=== PATIENT | male | born 1940 | race Caucasian/White ===

== ENCOUNTER 2020-04-23 11:14 | Inpatient (IN) | payer MEDICARE, OTHER ==
[~2020-04-23] VITALS: Ht 177.8 cm; Wt 71.5 kg
[2020-04-23 13:07] LABS: BASOPHILS % (AUTO) 0.1 % (0.0-2.0); EOSINOPHILS % (AUTO) 0.7 % (1.0-6.0); HEMATOCRIT 27.1 % (41-53); HEMOGLOBIN 8.8 g/dL (13.5-17.5); LYMPHOCYTES # (AUTO) 0.5 K/uL (1.0-4.8); LYMPHOCYTES % (AUTO) 8.7 % (22.0-44.0); MEAN CORPUSCULAR HEMOGLOBIN 28.8 pg (26.0-34.0); MEAN CORPUSCULAR HGB CONC 32.3 G/dL (31.0-37.0); MEAN CORPUSCULAR VOLUME 89 fL (80-100); MONOCYTES # (AUTO) 0.3 K/uL (0.1-1.0); MONOCYTES % (AUTO) 5.4 % (2.0-9.0); NEUTROPHILS # (AUTO) 5.1 K/uL (1.8-7.7); NEUTROPHILS % (AUTO) 85.1 % (40.0-70.0); PLATELET COUNT (AUTO) 274 K/uL (150-450); RED BLOOD CELL COUNT(AUTO) 3.05 MIL/uL (4.50-5.90)
[2020-04-23 13:17] LABS: CREATININE 1.82 mg/dL (0.60-1.30); POTASSIUM 3.8 mmol/L (3.5-5.1)
[2020-04-23 13:23] LABS: BILIRUBIN,TOTAL 1.1 mg/dL (0.1-1.0); TOTAL PROTEIN, SERUM 6.7 g/dL (6.4-8.2)
[2020-04-23] MEDS ORDERED: CefTRIAXone 1 GM/DEXTROSE 50 ML IV ONE (14:15)
[2020-04-23] MEDS ORDERED: AZITHROMYCIN 500 MG/NS 250 ML IV ONE (14:15)
[2020-04-23] MEDS ORDERED: NITROGLYCERIN 2% (1 GM=INCH) PACKET TP ONE (14:15)
[2020-04-23] MEDS ORDERED: FUROSEMIDE 40 MG/4 ML VIAL IVP ONE (14:15)
[2020-04-23] MEDS ORDERED: ASPIRIN 81 MG CHEWABLE TABLET PO ONE (14:15)
[2020-04-23 15:52] LABS: COVID AG,FIA SOURCE NASOPHARYNGEAL
[2020-04-23] MEDS ORDERED: DIGO125T84 PO (16:52)
[2020-04-23] MEDS ORDERED: PROZ10 PO (16:53)
[2020-04-23] MEDS ORDERED: FURO40 PO (16:58)
[2020-04-23] MEDS ORDERED: LEVO25TA9 PO (17:12)
[2020-04-23] MEDS ORDERED: MELA10CA PO (17:15)
[2020-04-23] MEDS ORDERED: MULT-1192 PO (17:16)
[2020-04-23] MEDS ORDERED: SPIR25 PO (17:16)
[2020-04-23] MEDS ORDERED: CHOL100018 PO (17:18)
[2020-04-23] MEDS ORDERED: CARV25TA32 PO (17:18)
[2020-04-23] MEDS ORDERED: APIX5TAB PO (17:19)
[2020-04-23] MEDS ORDERED: NITROGLYCERIN 0.4 MG SUBLINGUAL TABLET #25 SL PRN (17:45)
[2020-04-23] MEDS ORDERED: 0.9% SODIUM CHLORIDE 10 ML SYRINGE IVP PRN (18:15)
[2020-04-23] MEDS ORDERED: DOCUSATE SODIUM 100 MG CAPSULE PO PRN (18:15)
[2020-04-23] MEDS ORDERED: ONDANSETRON HCL 4 MG/2 ML VIAL IVP PRN (18:15)
[2020-04-23] MEDS ORDERED: ACETAMINOPHEN 325 MG TABLET PO PRN (18:15)
[2020-04-23] MEDS ORDERED: ALBUTEROL SULFATE 2.5 MG/0.5 ML NEB SOLUTION NEB PRN (18:15)
[2020-04-23] MEDS ORDERED: BISACODYL 10 MG RECTAL RECTAL SUPPOSITORY PR PRN (18:15)
[2020-04-23] MEDS ORDERED: IPRATROPIUM BROMIDE 0.5 MG/2.5 ML NEB SOLUTION NEB PRN (18:15)
[2020-04-23 18:18] VITALS: BP 153/94
[2020-04-23] MEDS ORDERED: SODIUM CHLORIDE 0.9% 500 ML IV ONE (20:00)
[2020-04-23 20:18] VITALS: BP 177/93
[2020-04-23 21:40] LABS: DIGOXIN 2.12 ng/mL (0.90-2.00)
[2020-04-23] MEDS ORDERED: MAGNESIUM SULFATE 4 GM/WATER 100 ML IV PRN (22:15)
[2020-04-23] MEDS ORDERED: MAGNESIUM OXIDE 400 MG TABLET PO PRN (22:15)
[2020-04-23] MEDS ORDERED: MAGNESIUM SULFATE 2 GM/WATER 50 ML IV PRN (22:15)
[2020-04-23] MEDS: CARVEDILOL 25 MG TABLET PO SCH (22:23)
[2020-04-23] MEDS: APIXABAN 5 MG TABLET PO SCH (22:23)
[2020-04-23] MEDS: MELATONIN 5 MG TABLET PO SCH (22:23)
[2020-04-23] MEDS: DOXYCYCLINE HYCLATE 100 MG in DEXTROSE 5%-WATER 100 ML IV SCH (23:15)
[2020-04-23 23:34] VITALS: BP 164/83
[2020-04-24 06:00] VITALS: BP 154/90
[2020-04-24] MEDS: LEVOTHYROXINE SODIUM 25 MCG TABLET PO SCH (06:23)
[2020-04-24 07:06] LABS: BASOPHILS % (AUTO) 0.3 % (0.0-2.0); EOSINOPHILS % (AUTO) 1.3 % (1.0-6.0); HEMATOCRIT 25.9 % (41-53); HEMOGLOBIN 8.4 g/dL (13.5-17.5); LYMPHOCYTES # (AUTO) 0.6 K/uL (1.0-4.8); LYMPHOCYTES % (AUTO) 8.3 % (22.0-44.0); MEAN CORPUSCULAR HEMOGLOBIN 28.6 pg (26.0-34.0); MEAN CORPUSCULAR HGB CONC 32.2 G/dL (31.0-37.0); MEAN CORPUSCULAR VOLUME 89 fL (80-100); MONOCYTES # (AUTO) 0.4 K/uL (0.1-1.0); NEUTROPHILS # (AUTO) 6.5 K/uL (1.8-7.7); NEUTROPHILS % (AUTO) 85.1 % (40.0-70.0); PLATELET COUNT (AUTO) 266 K/uL (150-450); RED BLOOD CELL COUNT(AUTO) 2.93 MIL/uL (4.50-5.90)
[2020-04-24 07:51] LABS: ALBUMIN 2.9 g/dL (3.4-5.0); CALCIUM, TOTAL 8.7 mg/dL (8.8-10.5); CHOL/HDL RATIO 3.5 (4.2-7.3); CREATININE 1.59 mg/dL (0.60-1.30); FREE T4 (FREE THYROXINE) 1.19 ng/dL (0.76-1.46); MAGNESIUM 2.2 mg/dL (1.80-2.40); POTASSIUM 3.8 mmol/L (3.5-5.1); TOTAL PROTEIN, SERUM 6.1 g/dL (6.4-8.2)
[2020-04-24 07:53] LABS: % IRON SATURATION 6.2 % (30-44)
[2020-04-24 07:59] LABS: APPEARANCE,URINE CLEAR (CLEAR); BILIRUBIN,URINE NEGATIVE (NEGATIVE); GLUCOSE, URINE (UA) NEGATIVE (NEGATIVE); KETONES,URINE NEGATIVE (NEGATIVE); LEUKOCYTE ESTERASE ,URINE NEGATIVE (NEGATIVE); NITRATE,URINE NEGATIVE (NEGATIVE); OCCULT BLOOD,URINE NEGATIVE (NEGATIVE); PH,URINE 6.5 (5.0-8.0); PROTEIN,URINE NEGATIVE (NEGATIVE)
[2020-04-24 08:22] LABS: HEMOGLOBIN A1C 6.4 % (3.8-5.6)
[2020-04-24] MEDS: PANTOPRAZOLE SODIUM 40 MG DR TABLET PO SCH (08:34)
[2020-04-24] MEDS: DOXYCYCLINE HYCLATE 100 MG in DEXTROSE 5%-WATER 100 ML IV SCH ×2 (08:34→21:34)
[2020-04-24] MEDS: CHOLECALCIFEROL (VIT D3) 1,000 UNITS [25 MCG] TABLET PO SCH (08:34)
[2020-04-24] MEDS: APIXABAN 5 MG TABLET PO SCH ×2 (08:34→21:35)
[2020-04-24] MEDS: MULTIVITAMINS, THERAPEUTIC TABLET PO SCH (08:34)
[2020-04-24] MEDS: FLUoxetine HCL 10 MG CAPSULE PO SCH (08:34)
[2020-04-24] MEDS: CARVEDILOL 25 MG TABLET PO SCH ×2 (08:34→21:35)
[2020-04-24] MEDS: ASPIRIN 81 MG CHEWABLE TABLET PO SCH (08:38)
[2020-04-24 08:39] VITALS: BP 169/102
[2020-04-24 08:57] VITALS: BP 164/94
[2020-04-24] MEDS ORDERED: DIGOXIN 125 MCG TABLET PO SCH (09:00)
[2020-04-24] MEDS: LISINOPRIL 5 MG TABLET PO SCH ×2 (11:28→22:46)
[2020-04-24 11:34] VITALS: BP 154/84
[2020-04-24] MEDS ORDERED: SODIUM CHLORIDE 3% 15 ML NEB SOLUTION NEB ONE (15:10)
[2020-04-24 15:45] VITALS: BP 133/87
[2020-04-24] MEDS: CefTRIAXone 1 GM/DEXTROSE 50 ML IV SCH (15:53)
[2020-04-24] MEDS: FERROUS SULFATE 325 MG EC TABLET PO SCH (17:37)
[2020-04-24 20:33] VITALS: BP 149/89
[2020-04-24] MEDS: BUMETANIDE 0.25 MG/ML 4 ML VIAL IVP SCH (21:33)
[2020-04-24] MEDS: DOCUSATE SODIUM 100 MG CAPSULE PO SCH (21:35)
[2020-04-24] MEDS: MELATONIN 5 MG TABLET PO SCH (21:35)
[2020-04-25 00:17] VITALS: BP 146/92
[2020-04-25 05:24] VITALS: BP 151/91
[2020-04-25 06:05] LABS: BASOPHILS % (AUTO) 0.4 % (0.0-2.0); EOSINOPHILS % (AUTO) 1.6 % (1.0-6.0); HEMATOCRIT 25.1 % (41-53); HEMOGLOBIN 8.1 g/dL (13.5-17.5); LYMPHOCYTES # (AUTO) 0.6 K/uL (1.0-4.8); LYMPHOCYTES % (AUTO) 9.9 % (22.0-44.0); MEAN CORPUSCULAR HEMOGLOBIN 28.9 pg (26.0-34.0); MEAN CORPUSCULAR HGB CONC 32.5 G/dL (31.0-37.0); MEAN CORPUSCULAR VOLUME 89 fL (80-100); MONOCYTES # (AUTO) 0.3 K/uL (0.1-1.0); MONOCYTES % (AUTO) 5.8 % (2.0-9.0); NEUTROPHILS # (AUTO) 4.7 K/uL (1.8-7.7); NEUTROPHILS % (AUTO) 82.3 % (40.0-70.0); PLATELET COUNT (AUTO) 260 K/uL (150-450); RED BLOOD CELL COUNT(AUTO) 2.82 MIL/uL (4.50-5.90); RED CELL DISTRIBUTION WIDTH 16.7 % (11.5-14.5)
[2020-04-25] MEDS: LEVOTHYROXINE SODIUM 25 MCG TABLET PO SCH (06:05)
[2020-04-25 06:38] LABS: ALBUMIN 2.9 g/dL (3.4-5.0); CALCIUM, TOTAL 8.7 mg/dL (8.8-10.5); CREATININE 1.67 mg/dL (0.60-1.30); MAGNESIUM 2.1 mg/dL (1.80-2.40); POTASSIUM 3.4 mmol/L (3.5-5.1); TOTAL PROTEIN, SERUM 6.4 g/dL (6.4-8.2)
[2020-04-25 07:34] VITALS: BP 176/114
[2020-04-25] MEDS: BUMETANIDE 0.25 MG/ML 4 ML VIAL IVP SCH ×2 (08:18→21:15)
[2020-04-25] MEDS: CARVEDILOL 25 MG TABLET PO SCH ×2 (08:18→21:16)
[2020-04-25] MEDS: PANTOPRAZOLE SODIUM 40 MG DR TABLET PO SCH (08:18)
[2020-04-25] MEDS: APIXABAN 5 MG TABLET PO SCH ×2 (08:18→21:16)
[2020-04-25] MEDS: ASPIRIN 81 MG CHEWABLE TABLET PO SCH (08:18)
[2020-04-25] MEDS: LISINOPRIL 5 MG TABLET PO SCH ×2 (08:18→21:15)
[2020-04-25] MEDS: CHOLECALCIFEROL (VIT D3) 1,000 UNITS [25 MCG] TABLET PO SCH (08:18)
[2020-04-25] MEDS: DOCUSATE SODIUM 100 MG CAPSULE PO SCH ×2 (08:18→21:16)
[2020-04-25] MEDS: MULTIVITAMINS, THERAPEUTIC TABLET PO SCH (08:18)
[2020-04-25] MEDS: FERROUS SULFATE 325 MG EC TABLET PO SCH ×2 (08:18→18:20)
[2020-04-25] MEDS: FLUoxetine HCL 10 MG CAPSULE PO SCH (08:19)
[2020-04-25] MEDS: DOXYCYCLINE HYCLATE 100 MG in DEXTROSE 5%-WATER 100 ML IV SCH ×2 (08:19→21:15)
[2020-04-25 11:16] VITALS: BP 135/65
[2020-04-25] MEDS ORDERED: POTASSIUM CHLORIDE 20 MEQ ER TABLET PO ONE (15:00)
[2020-04-25] MEDS: CefTRIAXone 1 GM/DEXTROSE 50 ML IV SCH (15:09)
[2020-04-25 15:37] VITALS: BP 162/96
[2020-04-25 19:26] VITALS: BP 141/72
[2020-04-25] MEDS: MELATONIN 5 MG TABLET PO SCH (23:16)
[2020-04-26 00:28] VITALS: BP 149/87
[2020-04-26 03:56] VITALS: BP 156/94
[2020-04-26] MEDS: LEVOTHYROXINE SODIUM 25 MCG TABLET PO SCH (07:16)
[2020-04-26 07:31] VITALS: BP 147/88
[2020-04-26] MEDS: DOXYCYCLINE HYCLATE 100 MG in DEXTROSE 5%-WATER 100 ML IV SCH ×2 (08:26→20:47)
[2020-04-26] MEDS: CHOLECALCIFEROL (VIT D3) 1,000 UNITS [25 MCG] TABLET PO SCH (08:27)
[2020-04-26] MEDS: LISINOPRIL 5 MG TABLET PO SCH (08:27)
[2020-04-26] MEDS: DOCUSATE SODIUM 100 MG CAPSULE PO SCH ×2 (08:28→20:49)
[2020-04-26] MEDS: CARVEDILOL 25 MG TABLET PO SCH ×2 (08:28→20:49)
[2020-04-26] MEDS: PANTOPRAZOLE SODIUM 40 MG DR TABLET PO SCH (08:28)
[2020-04-26] MEDS: FERROUS SULFATE 325 MG EC TABLET PO SCH ×2 (08:28→17:04)
[2020-04-26] MEDS: MULTIVITAMINS, THERAPEUTIC TABLET PO SCH (08:28)
[2020-04-26] MEDS: FLUoxetine HCL 10 MG CAPSULE PO SCH (08:28)
[2020-04-26] MEDS: BUMETANIDE 0.25 MG/ML 4 ML VIAL IVP SCH (08:28)
[2020-04-26] MEDS: ASPIRIN 81 MG CHEWABLE TABLET PO SCH (08:28)
[2020-04-26] MEDS: APIXABAN 5 MG TABLET PO SCH ×2 (08:28→20:49)
[2020-04-26 11:15] VITALS: BP 147/89
[2020-04-26 15:46] VITALS: BP 145/83
[2020-04-26] MEDS: CefTRIAXone 1 GM/DEXTROSE 50 ML IV SCH (17:04)
[2020-04-26 20:21] VITALS: BP 155/90
[2020-04-26] MEDS: MELATONIN 5 MG TABLET PO SCH (20:49)
[2020-04-27 00:15] VITALS: BP 155/94
[2020-04-27 04:37] VITALS: BP 150/94
[2020-04-27] MEDS: LEVOTHYROXINE SODIUM 25 MCG TABLET PO SCH (06:16)
[2020-04-27 07:33] VITALS: BP 150/99
[2020-04-27] MEDS: FLUoxetine HCL 10 MG CAPSULE PO SCH (08:49)
[2020-04-27] MEDS: DOCUSATE SODIUM 100 MG CAPSULE PO SCH (08:49)
[2020-04-27] MEDS: ASPIRIN 81 MG CHEWABLE TABLET PO SCH (08:49)
[2020-04-27] MEDS: CARVEDILOL 25 MG TABLET PO SCH (08:49)
[2020-04-27] MEDS: CHOLECALCIFEROL (VIT D3) 1,000 UNITS [25 MCG] TABLET PO SCH (08:49)
[2020-04-27] MEDS: DOXYCYCLINE HYCLATE 100 MG in DEXTROSE 5%-WATER 100 ML IV SCH (08:49)
[2020-04-27] MEDS: FERROUS SULFATE 325 MG EC TABLET PO SCH (08:50)
[2020-04-27] MEDS: PANTOPRAZOLE SODIUM 40 MG DR TABLET PO SCH (08:50)
[2020-04-27] MEDS: APIXABAN 5 MG TABLET PO SCH (08:50)
[2020-04-27] MEDS: MULTIVITAMINS, THERAPEUTIC TABLET PO SCH (08:50)
[2020-04-27] MEDS ORDERED: BUMETANIDE 1 MG TABLET PO SCH (09:00)
[2020-04-27] MEDS ORDERED: LISINOPRIL 10 MG TABLET PO SCH (09:00)
== END 2020-04-27 11:20 | DRG 291 ==
LOC: EMS 11:22 → 5N 16:51
PROVIDERS: ADMIT Internal Medicine; ATTEND Internal Medicine
PROC: 4B02XTZ Measurement of Cardiac Defibrillator, External Approach (ICD-10-PCS; principal; 2020-04-24)
DX: I13.0 Hypertensive heart and chronic kidney disease with heart failure and stage 1 through stage 4 chronic kidney disease, or unspecified chronic kidney disease (principal); I50.23 Acute on chronic systolic (congestive) heart failure; J96.00 Acute respiratory failure, unspecified whether with hypoxia or hypercapnia; J18.9 Pneumonia, unspecified organism; N17.9 Acute kidney failure, unspecified; I42.9 Cardiomyopathy, unspecified; D63.8 Anemia in other chronic diseases classified elsewhere; I48.91 Unspecified atrial fibrillation; E03.9 Hypothyroidism, unspecified; E78.5 Hyperlipidemia, unspecified; K21.9 Gastro-esophageal reflux disease without esophagitis; Z20.822 Contact with and (suspected) exposure to COVID-19; I25.10 Atherosclerotic heart disease of native coronary artery without angina pectoris; N18.30 Chronic kidney disease, stage 3 unspecified; Z79.899 Other long term (current) drug therapy; Z95.810 Presence of automatic (implantable) cardiac defibrillator
CPT/HCPCS: 76770; 82270; 82728; 83036; 83540; 83550; 83735; 84132; 84145; 84439; 84443; 85379; 87426; 93005; 93306; 99291; A9575; J0456; J0696; J1940; J3490; J7040; J7060; 36415-L1; 36415-TC; 71045-TC; 80061-TC; 80162-TC; 81003-TC; U0003

== ENCOUNTER 2020-07-23 06:01 | Emergency (ER) | payer MEDICARE, OTHER ==
[~2020-07-23] VITALS: Ht 165.1 cm; Wt 65.2 kg
[~2020-07-23 06:01] MED LIST: APIX5TAB PO; CARV25TA32 PO; CHOL100044 PO; DIGO125T84 PO; FLUO10CA24 PO; FURO40 PO; LEVO25TA9 PO; MELA10CA PO; MULT-1192 PO; SPIR25 PO
[2020-07-23] MEDS ORDERED: EPINEPHrine 1:10,000 [1 MG/10 ML] SYRINGE IVP ONE (06:03)
[2020-07-23] MEDS ORDERED: DOPamine HCL/D5W 400 MG/250 ML IV BAG IV ONE (06:03)
[2020-07-23] MEDS ORDERED: SODIUM CHLORIDE 0.9% 100 ML ONE (06:09)
[2020-07-23] MEDS ORDERED: IOHEXOL 350 MG/ML 100 ML VIAL ONE (06:09)
[2020-07-23 06:53] LABS: BASOPHILS % (AUTO) 0.3 % (0.0-2.0); EOSINOPHILS % (AUTO) 2.1 % (1.0-6.0); HEMATOCRIT 29.2 % (41-53); HEMOGLOBIN 9.7 g/dL (13.5-17.5); LYMPHOCYTES # (AUTO) 1.2 K/uL (1.0-4.8); LYMPHOCYTES % (AUTO) 15.2 % (22.0-44.0); MEAN CORPUSCULAR HEMOGLOBIN 31.1 pg (26.0-34.0); MEAN CORPUSCULAR HGB CONC 33.3 G/dL (31.0-37.0); MEAN CORPUSCULAR VOLUME 94 fL (80-100); MONOCYTES # (AUTO) 0.5 K/uL (0.1-1.0); MONOCYTES % (AUTO) 6.7 % (2.0-9.0); NEUTROPHILS % (AUTO) 75.7 % (40.0-70.0); PLATELET COUNT (AUTO) 234 K/uL (150-450); RED BLOOD CELL COUNT(AUTO) 3.12 MIL/uL (4.50-5.90); RED CELL DISTRIBUTION WIDTH 17.2 % (11.5-14.5)
[2020-07-23 07:10] LABS: ALBUMIN 3.5 g/dL (3.4-5.0); BILIRUBIN,TOTAL 0.7 mg/dL (0.1-1.0); CALCIUM, TOTAL 9.2 mg/dL (8.8-10.5); CREATININE 2.84 mg/dL (0.60-1.30); DIGOXIN 0.87 ng/mL (0.90-2.00); INR 1.1 (0.9-1.1); PROTHROMBIN TIME 11.9 SEC (9.4-11.6)
[2020-07-23 07:12] LABS: POTASSIUM 6.4 mmol/L (3.5-5.1)
[2020-07-23] MEDS ORDERED: ALBUTEROL SULFATE 5 MG/ML 20 ML NEB SOLN [BULK] NEB ONE (07:15)
[2020-07-23] MEDS ORDERED: DEXTROSE 50%-WATER 25 GM/50 ML SYRINGE IVP ONE (07:15)
[2020-07-23] MEDS ORDERED: CALCIUM GLUCONATE 0.465 MEQ/ML 10 ML VIAL IVP ONE (07:15)
[2020-07-23] MEDS ORDERED: INSULIN REGULAR, HUMAN 100 UNITS/ML IVP ONE (07:15)
[2020-07-23] MEDS ORDERED: ALTEPLASE PER STROKE PROTOCOL CLINICAL ONE (07:45)
[2020-07-23] MEDS ORDERED: ALTEPLASE IV ONE ×2 (07:45)
[2020-07-23] MEDS ORDERED: METOPROLOL TARTRATE 5 MG/5 ML VIAL IVP ONE ×2 (07:45)
[2020-07-23] MEDS ORDERED: WATER FOR INJECTION STERILE IV ONE ×2 (07:45)
[2020-07-23] MEDS ORDERED: 0.9% SODIUM CHLORIDE 5 ML NEB SOLUTION NEB ONE (08:02)
[2020-07-23] MEDS ORDERED: SODIUM CHLORIDE 0.9% 1,000 ML ONE (08:40)
[2020-07-23] MEDS ORDERED: SODIUM CHLORIDE 0.9% 1,000 ML IV ONE ×2 (09:00)
[2020-07-23 09:46] LABS: GLUCOSE,POINT OF CARE 161 MG/DL (70-110)
[2020-07-23 13:10] VITALS: BP 166/86
== END 2020-07-23 09:45 | disposition short-term general hospital (02) ==
LOC: EMS 06:02
DX: I63.9 Cerebral infarction, unspecified (principal); I65.22 Occlusion and stenosis of left carotid artery; D64.9 Anemia, unspecified; R77.8 Other specified abnormalities of plasma proteins; E87.5 Hyperkalemia; I13.0 Hypertensive heart and chronic kidney disease with heart failure and stage 1 through stage 4 chronic kidney disease, or unspecified chronic kidney disease; N18.30 Chronic kidney disease, stage 3 unspecified; I50.9 Heart failure, unspecified; I25.10 Atherosclerotic heart disease of native coronary artery without angina pectoris; I48.91 Unspecified atrial fibrillation; Z95.0 Presence of cardiac pacemaker; Z79.899 Other long term (current) drug therapy
CPT/HCPCS: 36415; 37195; 70450; 70496; 71045; 80053; 80162; 82962; 84484; 85025; 85610; 85730; 86850; 86900; 86901; 93005; 94640; 96361; 96374; 96375; 99291; 99292; A9575; J0171; J0610; J1265; J1815; J2997; J3490; J7030; J7050; J7611